=== PATIENT | male | born 1960 | race Caucasian/White ===

== ENCOUNTER 2025-01-29 22:40 | Observation (INO) ==
[2025-01-29 23:01] LABS: Hematocrit (blood only) 42.4 % (42.0-52.0); Hemoglobin 13.7 g/dl (14.0-18.0); Mean Corpuscular Hemoglobin 29.3 pg (25.0-34.0); Mean Corpuscular Volume 90.8 fL (80.0-100.0); Platelet Count 182 K/uL (130-400); RDW Standard Deviation 49.2 fL (36.4-46.3); Red Blood Count 4.67 M/uL (4.70-6.10); White Blood Count 10.69 K/ul (4.8-10.8)
--- NOTE | 2025-01-29 23:09 | Emergency Department Note ---
Impression & Plan Fall, CHI (closed head injury), Laceration of forehead, Alcohol intoxication, Syncope and collapse, Concussion ED Provider Note NAME: BERNARD BLIAR AGE: 64 SEX: Male INFORMANT: Patient, EMS, and friends ED PROVIDER(S): Ryder Ribeiro MD CHIEF COMPLAINT: Trauma PLAN: Disposition: Admitted Outpatient prescription management: none Referral: None MEDICAL DECISION MAKING: Patient presented and was made a trauma alert given the mechanism of injury by EMS report. He was evaluated immediately on arrival. Primary and secondary surveys performed. Patient was logrolled with inline cervical stabilization in the standard fashion. Patient was noted to have a laceration of the right forehead. Let gel was ordered. Chest x-ray done and was negative for acute process. I-STAT was unremarkable. Patient was sent for CT imaging of the head, facial bones and cervical spine. Secondary survey did not reveal any other injury. Benign chest, spine, abdominal, and extremity examination. Patient CBC and chemistry panel were unremarkable. Patient's blood alcohol level was slightly elevated at 0.145 mg/dL. Patient was reassessed multiple times. Mental status was stable. Patient's friends arrived to the emergency department and noted they were with him. They were standing listening to music and the patient seemingly just fell over from a standing position. No seizure activity described. They state that he seemed somewhat off just prior to the event. Everything seemed to be normal leading up to the event as well. Patient's mental status was gradually improving. Due to the alcohol on board his cervical collar was maintained. Patient has a small hairline crack of the right orbit. His laceration was repaired by my PA. Given the syncope as well as the head injury I discussed further evaluation and management in the hospital. Patient can have a consultation with oral maxillofacial surgery in the morning. Consultation was made with the [facility] service, Dr. Little. Discussed the patient's history, presentation and results from ER workup. Patient was evaluated in the ER and admitted for further management Care/management discussed with: regional construction manager, hospitalist Level of care consideration(s): After review of the information above and other included data, I feel the patient requires escalation of care to admission Triage Nursing notes: reviewed and agree them. Vital Signs: reviewed and remarkable for hypertension Additional History obtained from: EMS as well as the patient's friends as noted above. Chronic Medical/Social Conditions affecting care: Hypertension Prior/ Outside/ External records reviewed: None available Differential Diagnosis: Fracture, dislocation, contusion, intra-abdominal, pneumothorax, intrathoracic, intracranial, neurologic, compartment syndrome, rhabdomyolysis, as well as other pathologies. Diagnostics, independently interpreted by me: ECG: Twelve-lead ECG reveals normal sinus rhythm at 88 beats per minute. Inferior Q waves. No evidence of pericarditis, ischemia, ectopy, or dysrhythmia. Cardiac Monitoring: Cardiac monitoring ordered by me: The patient was placed on continuous cardiac monitoring and observed. It revealed a normal sinus rhythm at 76 beats per minute without ectopy or evidence of dysrhythmia. Medical decision rules: none Imaging studies: CT imaging of the head, facial bones and cervical spine as above. Chest x-ray. Findings: A chest x-ray was performed and revealed no pneumothorax, effusion, infiltrate, pulmonary edema, free air under the diaphragm, or wide mediastinum. Impression: No acute disease. HPI: 64 year old Male arrives for evaluation of trauma. Patient was reportedly drinking some alcohol downtown. He had an accidental fall and struck the right side of his face and the forehead/restorationism area. He had a laceration there with bleeding. Patient was unresponsive for about 2 to 3 minutes per bystanders on EMS report. Patient states he is visiting from [facility]. He was placed in a cervical collar. EMS contacted [facility]. They noted trauma and given their proximity he was directed to the emergency department for formal evaluation. No medication given prehospital. Patient notes a minor headache with a pain of a 1 out of 10. Pt denies LOC,visual changes, neck pain, chest pain, breathing difficulties, nausea, vomiting, abdominal pain, back pain, extremity pain, numbness, weakness, or other complaints. PAST MEDICAL HISTORY: See Below, high blood pressure PAST SURGICAL HISTORY: See Below, SOCIAL HISTORY: See Below, occasional alcohol HOME MEDICATIONS: See Below ALLERGIES: See Below VITALS: See Below PHYSICAL EXAMINATION: GENERAL: Awake, tired appearing, no acute distress HEAD: Normocephalic, moderate laceration noted to the lateral right forehead/anterior temporal area. No ornelas sign. No raccoon eyes. EYES: Normal conjunctiva. PERRL. EARS: External ears normal. NOSE: Atraumatic OROPHARYNX: Lips, tongue, and mucosa unremarkable. No erythema or exudate. NECK: Cervical collar in place. No tracheal deviation or JVD. No posterior midline tenderness. No step offs noted. RESPIRATORY: CTA bilaterally CARDIAC: Regular rate, normal rhythm. ABDOMEN: Inspection reveals no abnormalities. Soft, non distended. No tenderness to palpation. No hernias. BACK: No midline step offs or tenderness to palpation. Unremarkable. PELVIS: Stable to rock. SKIN: Normal. LYMPH: No adenopathy. MUSCULOSKELETAL: Upper and lower extremities are atraumatic. NEURO: GCS 14. Opens eyes to voice. Oriented to person and place however mildly altered sensorium. No focal sensory or motor deficits noted. PROCEDURES: none CRITICAL CARE: none OBSERVATION NOTE: none Past Med/Surg History Problem List (Updated 01/30/25 @ 02:01 by Ryder Ribeiro MD) Concussion (Acute) Syncope and collapse (Acute) Alcohol intoxication (Acute) Laceration of forehead (Acute) CHI (closed head injury) (Acute) Fall (Acute) Social History Smoking Status: Never smoker Preferred Language: Belarusian Feels Safe at Home: Yes Allergies Allergies Allergy/AdvReac Type Severity Reaction Status Date / Time No Known Allergies Allergy Verified 01/30/25 00:13 Home Meds Home Medications Medication Instructions Recorded Confirmed aspirin 81 mg tablet,delayed 81 mg PO DAILY 01/30/25 01/30/25 release atorvastatin 20 mg tablet 20 mg PO DAILY 01/30/25 01/30/25 Results & Data (ED) Vital Signs Vital Signs - 24 hr 01/29/25 22:44 01/29/25 22:46 01/29/25 22:47 Temperature 36.4 C L Pulse Rate 88 94 H Pulse Rate [Apical] Pulse Rhythm [Apical] Pulse Strength [Apical] Respiratory Rate 18 Respiratory Effort / Characteristics Respiratory Depth Respiratory Pattern Blood Pressure 170/95 H Blood Pressure [Right Arm] Blood Pressure Mean [Right Arm] Blood Pressure Position [Right Arm] Pulse Oximetry 95 Oxygen Delivery Method Room Air Oxygen Flow Rate 0 Sepsis Recent Fever Within 48 Hours No Sepsis New/Unexplained Change in Mental Status No Sepsis Action Taken by Nursing No Action Required 01/29/25 23:30 01/29/25 23:30 01/29/25 23:30 Temperature Pulse Rate Pulse Rate [Apical] 94 H 94 H Pulse Rhythm [Apical] Regular Regular Pulse Strength [Apical] Normal Normal Respiratory Rate 18 18 Respiratory Effort / Characteristics Non-Labored Spontaneous Non-Labored Spontaneous Respiratory Depth Normal Normal Respiratory Pattern Regular Regular Blood Pressure Blood Pressure [Right Arm] 143/69 H 143/69 H Blood Pressure Mean [Right Arm] 93 93 Blood Pressure Position [Right Arm] Semi-fowlers Semi-fowlers Pulse Oximetry 95 95 95 Oxygen Delivery Method Room Air Room Air Room Air Oxygen Flow Rate Sepsis Recent Fever Within 48 Hours Sepsis New/Unexplained Change in Mental Status Sepsis Action Taken by Nursing 01/30/25 00:00 01/30/25 01:00 Temperature Pulse Rate Pulse Rate [Apical] 90 76 Pulse Rhythm [Apical] Regular Regular Pulse Strength [Apical] Normal Normal Respiratory Rate 18 18 Respiratory Effort / Characteristics Non-Labored Spontaneous Non-Labored Spontaneous Respiratory Depth Normal Normal Respiratory Pattern Regular Regular Blood Pressure Blood Pressure [Right Arm] 128/71 115/73 Blood Pressure Mean [Right Arm] 90 87 Blood Pressure Position [Right Arm] Semi-fowlers Semi-fowlers Pulse Oximetry 94 95 Oxygen Delivery Method Room Air Room Air Oxygen Flow Rate Sepsis Recent Fever Within 48 Hours Sepsis New/Unexplained Change in Mental Status Sepsis Action Taken by Nursing Laboratory Data 01/29/25 22:49 01/29/25 22:49 Lab Results 01/29/25 01/29/25 Range/Units 22:49 22:55 WBC 10.69 (4.8-10.8) K/ul RBC 4.67 L (4.70-6.10) M/uL Hgb 13.7 L (14.0-18.0) g/dl POC Hgb 14.3 (14.0-18.0) g/dl Hct 42.4 (42.0-52.0) % POC Hct 42 (42-52) % MCV 90.8 (80.0-100.0) fL MCH 29.3 (25.0-34.0) pg MCHC 32.3 (32.0-36.0) g/dL RDW Std Deviation 49.2 H (36.4-46.3) fL RDW Coeff of Melodie 14.8 H (11.5-14.5) % Plt Count 182 (130-400) K/uL MPV 10.0 (9.4-12.4) fL Immature Gran % (Auto) 0.3 % Neut % (Auto) 35.3 % Lymph % (Auto) 50.0 % [place] % (Auto) 6.5 % Eos % (Auto) 7.2 % Baso % (Auto) 0.7 % Neut # (Auto) 3.77 (1.40-6.50) K/uL Lymph # (Auto) 5.35 H (1.20-3.40) K/uL [place] # (Auto) 0.70 H (0.11-0.59) K/uL Eos # (Auto) 0.77 H (0.00-0.50) K/uL Baso # (Auto) 0.07 (0.00-0.20) K/uL Immature Gran # (Auto) 0.03 (0.01-0.20) K/uL Polychromasia 1+ PT 10.2 (9.0-12.0) Seconds INR 0.9 (0.9-1.1) APTT 21 (21-31) Seconds PTT Ratio 0.8 POC Sodium 140 (135-144) mmol/L Sodium 139 (136-145) mmol/L POC Potassium 4.2 (3.3-5.0) mmol/L Potassium 4.2 (3.5-5.1) mmol/L POC Chloride 104 (101-112) mmol/L Chloride 103 (98-107) mmol/L Carbon Dioxide 29 (21-32) mmol/L POC Total CO2 27 (24-31) mmol/L Anion Gap 7 (3-11) POC Anion Gap 14.0 L (16-25) mmol/L POC BUN 18 (7-18) mg/dl BUN 16 (6-23) mg/dl Creatinine 1.22 (0.6-1.4) mg/dl POC Creatinine 1.4 H (0.6-1.3) mg/dl Est Cr Clr Drug Dosing 53.9 ml/min eGFR 66.62 BUN/Creatinine Ratio 13.1 (10-20) Glucose 116 H (70-99(Fasting)) mg/dl POC Glucose (other) 112 H (70-99) mg/dl Calcium 9.9 (8.6-10.3) mg/dl POC Ioniz Calcium Jennifer 1.21 (1.12-1.32) mmol/l Total Bilirubin 0.4 (0.2-1.0) mg/dl AST 27 (13-39) U/L ALT 19 (7-52) U/L Alkaline Phosphatase 122 H (34-104) U/L Troponin I High Sens 4.8 (0-20) pg/ml Total Protein 7.5 (6.0-8.3) gm/dl Albumin 4.4 (3.4-5.0) gm/dl Globulin 3.1 (2.5-4.0) gm/dl Albumin/Globulin Ratio 1.4 (0.9-2) Lipase 65 (11-82) U/L Ethyl Alcohol mg/dL 145.2 H (<10.0) mg/dl Administered Medications Discontinued Medications Acetaminophen (Ofirmev) 1,000 mg in 100 mls @ 400 mls/hr IV NOW STA Stop: 01/30/25 01:03 Last Infusion: 01/30/25 01:44 Dose: Infused Documented By: Admin: 01/30/25 01:15 Dose: 400 mls/hr Documented By: YAQUELIN Lidocaine (Lidocaine/Epineph/Tetracaine 1 Ea Syr) 1 each EXT NOW STA Stop: 01/29/25 22:48 Last Admin: 01/29/25 23:17 Dose: 1 each Documented By: YAQUELIN Imaging Data Radiologist's Impression: Cervical Spine CT 01/29/25 22:47 Exam(s): CT C SPINE EXAM: CT Cervical Spine Without Intravenous Contrast CLINICAL HISTORY: Reason for exam: Trauma. TECHNIQUE: Axial computed tomography images of the cervical spine without intravenous contrast. CTDI is 36.26 mGy and DLP is 1780.78 mGy-cm. Automated exposure control was utilized for the study. A dose lowering technique was utilized adhering to the principles of ALARA. COMPARISON: No relevant prior studies available. FINDINGS: Vertebrae: No acute fracture. No traumatic subluxation. Discs/spinal canal/neural foramina: Disc and uncovertebral joint degeneration at C4-C5, C5-C6, and C6-C7. Mild spinal canal stenosis and foraminal narrowing at these levels. Soft tissues: Unremarkable. IMPRESSION: No acute findings in the cervical spine. Electronically signed by: González Adams M.D. 01/29/25 23:38 PM Chest X-Ray 01/29/25 22:47 Exam(s): XR CXR 1 VIEW EXAM: XR Chest, 1 View CLINICAL HISTORY: Reason for exam: Trauma. TECHNIQUE: Frontal view of the chest. COMPARISON: No relevant prior studies available. FINDINGS: Lungs: No consolidation. Pleural space: No significant pleural effusion. No pneumothorax. Heart: No cardiomegaly or pulmonary vascular congestion. Bones/joints: No acute fracture. No dislocation. IMPRESSION: No evidence of acute cardiopulmonary disease. Electronically signed by: González Adams M.D. 01/30/25 00:[address] 01/29/25 22:47 Exam(s): CT FACIAL Without Contrast EXAM: CT Maxillofacial Without Intravenous Contrast CLINICAL HISTORY: Reason for exam: Trauma. TECHNIQUE: Axial computed tomography images of the face without intravenous contrast. CTDI is 36.26 mGy and DLP is 1780.78 mGy-cm. Automated exposure control was utilized for the study. A dose lowering technique was utilized adhering to the principles of ALARA. COMPARISON: No relevant prior studies available. FINDINGS: Bones/joints: Acute nondisplaced hairline fracture through the right orbital roof. No other fractures of the orbits or facial bones. Soft tissues: Right periorbital soft tissue swelling. Orbits: Ocular globes intact. No retrobulbar abnormalities. Small volume of hemorrhage and gas in the superior extraconal right orbital cavity. Sinuses: Mild mucosal thickening in the right frontal sinus, right ethmoids, and bilateral maxillary sinuses. IMPRESSION: 1. Right periorbital soft tissue swelling. 2. Acute nondisplaced hairline fracture through the right orbital roof. Associated small amount of hemorrhage and emphysema in the extraconal superior right orbital cavity. Electronically signed by: González Adams M.D. 01/29/25 23:[address] 01/29/25 22:47 Exam(s): CT HEAD Without Contrast EXAM: CT Head Without Intravenous Contrast CLINICAL HISTORY: Reason for exam: Trauma. TECHNIQUE: Axial computed tomography images of the head/brain without intravenous contrast. CTDI is 36.26 mGy and DLP is 1780.78 mGy-cm. Automated exposure control was utilized for the study. A dose lowering technique was utilized adhering to the principles of ALARA. COMPARISON: No relevant prior studies available. FINDINGS: Brain: No acute intracranial hemorrhage, mass effect, or parenchymal edema. No evident loss of dewitt-white matter differentiation. No significant white matter disease. Ventricles: No hydrocephalus. Bones/joints: Acute hairline fracture through the right orbital roof. Subjacent foci of gas and hemorrhage in the superior extraconal right orbital cavity. Soft tissues: Right frontal scalp laceration/hematoma and right supraorbital soft tissue swelling. Vasculature: Intracranial atherosclerosis. Sinuses: Unremarkable as visualized. Mastoid air cells: No significant mastoid effusion. IMPRESSION: 1. Right frontal scalp laceration/hematoma and right supraorbital soft tissue swelling. 2. Acute hairline fracture through the right orbital roof. Subjacent foci of gas and hemorrhage in the superior extraconal right orbital cavity. 3. No acute intracranial findings. Electronically signed by: González Adams M.D. 01/29/25 23:45 PM Discharge Plan Visit Data Chief Complaint: Trauma Stated Complaint: fall ED Provider: Ryder Ribeiro Discharge Problem: Fall, CHI (closed head injury), Laceration of forehead, Alcohol intoxication, Syncope and collapse, Concussion Condition: Good Forms Stand Alone Forms: [facility] [employer] Prescriptions Prescriptions: No Action atorvastatin 20 mg tablet 20 mg PO DAILY aspirin 81 mg Tablet,Delayed Release (Dr/Ec) 81 mg PO DAILY Referrals Referrals: PCP,NO [Primary Care Provider] -
[2025-01-29] MEDS: LIDOCAINE/EPINEPH/TETRACAINE 1 EA SYR EXT STA (23:17)
[2025-01-29 23:19] LABS: Alanine Aminotransferase 19.0 U/L (7-52); Albumin Globulin Ratio 1.4 (0.9-2); Alkaline Phosphatase 122.0 U/L (34-104); Anion Gap 7.0 (3-11); Bilirubin,Total 0.4 mg/dl (0.2-1.0); Blood Urea Nitrogen 16.0 mg/dl (6-23); Calcium 9.9 mg/dl (8.6-10.3); Carbon Dioxide 29.0 mmol/L (21-32); Chloride 103.0 mmol/L (98-107); Creatinine Clr Calc Pharmacy 53.9 ml/min; Globulin 3.1 gm/dl (2.5-4.0); Glucose 116.0 mg/dl (70-99(Fasting)); Lipase 65.0 U/L (11-82); Potassium 4.2 mmol/L (3.5-5.1); Sodium 139.0 mmol/L (136-145); Total Protein 7.5 gm/dl (6.0-8.3)
[2025-01-29 23:40] LABS: INR 0.9 (0.9-1.1); Partial Thromboplastin Time 21 Seconds (21-31); Prothrombin Time 10.2 Seconds (9.0-12.0)
--- NOTE | 2025-01-29 23:40 | CT Scan Report ---
Exam(s): CT C SPINE EXAM: CT Cervical Spine Without Intravenous Contrast CLINICAL HISTORY: Reason for exam: Trauma. TECHNIQUE: Axial computed tomography images of the cervical spine without intravenous contrast. CTDI is 36.26 mGy and DLP is 1780.78 mGy-cm. Automated exposure control was utilized for the study. A dose lowering technique was utilized adhering to the principles of ALARA. COMPARISON: No relevant prior studies available. FINDINGS: Vertebrae: No acute fracture. No traumatic subluxation. Discs/spinal canal/neural foramina: Disc and uncovertebral joint degeneration at C4-C5, C5-C6, and C6-C7. Mild spinal canal stenosis and foraminal narrowing at these levels. Soft tissues: Unremarkable. IMPRESSION: No acute findings in the cervical spine. Electronically signed by: González Adams M.D. 01/29/25 23:38 PM
--- NOTE | 2025-01-29 23:46 | CT Scan Report ---
Exam(s): CT HEAD Without Contrast EXAM: CT Head Without Intravenous Contrast CLINICAL HISTORY: Reason for exam: Trauma. TECHNIQUE: Axial computed tomography images of the head/brain without intravenous contrast. CTDI is 36.26 mGy and DLP is 1780.78 mGy-cm. Automated exposure control was utilized for the study. A dose lowering technique was utilized adhering to the principles of ALARA. COMPARISON: No relevant prior studies available. FINDINGS: Brain: No acute intracranial hemorrhage, mass effect, or parenchymal edema. No evident loss of dewitt-white matter differentiation. No significant white matter disease. Ventricles: No hydrocephalus. Bones/joints: Acute hairline fracture through the right orbital roof. Subjacent foci of gas and hemorrhage in the superior extraconal right orbital cavity. Soft tissues: Right frontal scalp laceration/hematoma and right supraorbital soft tissue swelling. Vasculature: Intracranial atherosclerosis. Sinuses: Unremarkable as visualized. Mastoid air cells: No significant mastoid effusion. IMPRESSION: 1. Right frontal scalp laceration/hematoma and right supraorbital soft tissue swelling. 2. Acute hairline fracture through the right orbital roof. Subjacent foci of gas and hemorrhage in the superior extraconal right orbital cavity. 3. No acute intracranial findings. Electronically signed by: González Adams M.D. 01/29/25 23:45 PM
[2025-01-29 23:52] LABS: Immature Granulocytes # (auto) 0.03 K/uL (0.01-0.20); Immature Granulocytes % (auto) 0.3 %; Polychromasia 1+
--- NOTE | 2025-01-30 | CT Scan Report ---
Exam(s): CT FACIAL Without Contrast EXAM: CT Maxillofacial Without Intravenous Contrast CLINICAL HISTORY: Reason for exam: Trauma. TECHNIQUE: Axial computed tomography images of the face without intravenous contrast. CTDI is 36.26 mGy and DLP is 1780.78 mGy-cm. Automated exposure control was utilized for the study. A dose lowering technique was utilized adhering to the principles of ALARA. COMPARISON: No relevant prior studies available. FINDINGS: Bones/joints: Acute nondisplaced hairline fracture through the right orbital roof. No other fractures of the orbits or facial bones. Soft tissues: Right periorbital soft tissue swelling. Orbits: Ocular globes intact. No retrobulbar abnormalities. Small volume of hemorrhage and gas in the superior extraconal right orbital cavity. Sinuses: Mild mucosal thickening in the right frontal sinus, right ethmoids, and bilateral maxillary sinuses. IMPRESSION: 1. Right periorbital soft tissue swelling. 2. Acute nondisplaced hairline fracture through the right orbital roof. Associated small amount of hemorrhage and emphysema in the extraconal superior right orbital cavity. Electronically signed by: González Adams M.D. 01/29/25 23:59 PM
--- NOTE | 2025-01-30 00:01 | Emergency Department Note ---
ED Visit Note I was asked by Dr. Ribeiro to repair this patient's forehead laceration. Please refer to his dictation for full details. In short, the patient had a syncopal event causing a laceration to the right side of the forehead. The patient has a 3 cm laceration to the right side of the forehead. The edges gape apart with traction. No deep structures injured within the base of the wound. No foreign bodies. No active bleeding. Risks and benefits of the procedure were discussed. Verbal consent was obtained to perform the procedure and the procedure was performed by myself. Let gel had been applied for anesthesia. Using sterile technique the wound was cleaned with Betadine. The area was sterilely draped. Once the patient was anesthetized, the wound was copiously irrigated under pressure with sterile saline. The wound was explored and was as described above. The laceration was repaired using 8 simple interrupted 6-0 nylon sutures with the wound edges being well approximated. The patient tolerated the procedure well. Hemostasis was achieved. The area was cleaned with sterile saline and dressed with bacitracin ointment. .
--- NOTE | 2025-01-30 00:05 | XRay Report ---
Exam(s): XR CXR 1 VIEW EXAM: XR Chest, 1 View CLINICAL HISTORY: Reason for exam: Trauma. TECHNIQUE: Frontal view of the chest. COMPARISON: No relevant prior studies available. FINDINGS: Lungs: No consolidation. Pleural space: No significant pleural effusion. No pneumothorax. Heart: No cardiomegaly or pulmonary vascular congestion. Bones/joints: No acute fracture. No dislocation. IMPRESSION: No evidence of acute cardiopulmonary disease. Electronically signed by: González Adams M.D. 01/30/25 00:04 AM
[2025-01-30] MEDS: ACETAMINOPHEN 1,000 MG/100 ML VIAL IV STA (01:15)
[2025-01-30 02:08] LABS: Appearance Urine Clear (Clear); Glucose Urine UA Negative (Negative)
[2025-01-30] MEDS: THIAMINE HCL 100 MG in SYRINGE 9 ML IV STA (05:35)
--- NOTE | 2025-01-30 06:52 | History & Physical Report ---
Date of Service January 30, 2025 Assessment & Plan (1) Syncope and collapse: Plan: 64-year-old male with past medical history significant for hyperlipidemia who is unassigned patient visiting [place] comes because of syncope and fall. Patient is visiting from [facility]. Seems visiting his friends. He played golf and was drinking alcohol. The patient suddenly fell down. Patient does not remember the events. As per the ER his friends told that they were standing listening to the music as patient suddenly seemed somewhat off and just fell over from the standing position. No seizure activity noted. Looks like patient passed out for 2 to 3 minutes. When he fell he hit the right side of the head. He had a laceration and bleeding on the right forehead. Laceration was repaired in the ER. Patient is on neck collar. His alcohol as 145. Imaging studies showed hairline fracture of the right orbit. Patient has a bruise over the right eye. Currently denies any headache or neck pain. Denies any blurred vision ,says vision is okay. No runny nose or sore throat. No cough. No earaches. Afebrile. Denies any chest pain or shortness of breath. Denies nausea. Denies abdominal pain. States normal bowel and bladder movements. Hemodynamics are okay currently. Syncope and collapse Alcohol level [address] head shows right frontal scalp laceration and right supraorbital soft tissue swelling. Acute hairline fracture of the right orbital roof with subsequent foci of gas and hemorrhage in the superior extraconal right orbital cavity. No acute intracranial findings Will follow serial enzymes and repeat EKG in. Monitor on telemetry Will follow echo IV fluids Cardiology consult Fall Right orbital hairline fracture Consult maxillofacial surgery Empiric Unasyn continue neck collar until alcohol level down and evaluate denies any headache or neck pain now npo for now. Iv fluids Alcoholism Alcohol level 145 Patient states he only drinks couple of times a week and not heavy Says he will not go through withdrawal Will place on thiamine, folic acid and multivitamins IV Ativan as needed Close monitor Hyperlipidemia Statin DVT prophylaxis SCDs Disposition Telemetry Full code. History of Present Illness Chief Complaint: Syncope and status post fall Primary Care Provider: NO PCP 64-year-old male with past medical history significant for hyperlipidemia who is unassigned patient visiting [place] comes because of syncope and fall. Patient is visiting from [facility]. Seems visiting his friends. He played golf and was drinking alcohol. The patient suddenly fell down. Patient does not remember the events. As per the ER his friends told that they were standing listening to the music as patient suddenly seemed somewhat off and just fell over from the standing position. No seizure activity noted. Looks like patient passed out for 2 to 3 minutes. When he fell he hit the right side of the head. He had a laceration and bleeding on the right forehead. Laceration was repaired in the ER. Patient is on neck collar. His alcohol as 145. Imaging studies showed hairline fracture of the right orbit. Patient has a bruise over the right eye. Currently denies any headache or neck pain. Denies any blurred vision ,says vision is okay. No runny nose or sore throat. No cough. No earaches. Afebrile. Denies any chest pain or shortness of breath. Denies nausea. Denies abdominal pain. States normal bowel and bladder movements. Hemodynamics are okay currently. Past medical history. As mentioned above. Past surgical history. Left shoulder cuff repair. Left tibia-fibula repair. Social history. Denies smoking. Says drinks beer 2 times a week and not much. Denies drug use. Family history. Father had bladder cancer. Mother had breast cancer. Allergies Allergy/AdvReac Type Severity Reaction Status Date / Time No Known Allergies Allergy Verified 01/30/25 00:13 Home Medications Medication Instructions Recorded Confirmed Type aspirin 81 mg tablet,delayed 81 mg PO DAILY 01/30/25 01/30/25 History release atorvastatin 20 mg tablet 20 mg PO DAILY 01/30/25 01/30/25 History Past Med/Surg History Problem List (Updated 01/30/25 @ 02:01 by Ryder Ribeiro MD) Concussion (Acute) Syncope and collapse (Acute) Alcohol intoxication (Acute) Laceration of forehead (Acute) CHI (closed head injury) (Acute) Fall (Acute) Social History Smoking Status: Never smoker Preferred Language: Hungarian Feels Safe at Home: Yes Review of Systems Review of Systems: All systems reviewed & are unremarkable except as noted in HPI & below Physical Exam Physical Exam: General- not in acute distress Head- laceration on left forehead, bruise surrounding right eye Eyes- PERRL. ENT- oropharynx clear Neck- On Neck collar Lungs- clear to auscultation no wheezing or crackles Heart- regular rhythm; no murmur, no gallop. Abdomen- normal bowel sounds, soft, nontender, no distension Extremities- no pretibial edema, no erythema seen Neuro- alert, oriented x 3; no facial palsy; no dysarthria; moves extremities .power 5/5 in all extremities Results & Data Results & Data Vital Signs (Past 12 Hours) Vital Signs Temp Pulse Pulse Resp BP BP Pulse Ox 01/30/25 04:00 79 18 105/68 96 01/30/25 03:00 74 17 110/65 97 01/30/25 02:40 83 01/30/25 02:00 74 18 107/67 94 01/30/25 01:00 76 18 115/73 95 01/30/25 00:00 90 18 128/71 94 01/29/25 23:30 94 H 18 143/69 H 95 01/29/25 23:30 94 H 18 143/69 H 95 01/29/25 23:30 95 01/29/25 22:46 94 H 01/29/25 22:44 36.4 C L 88 18 170/95 H 95 O2 Del Method O2 Flow Rate 01/30/25 04:00 Room Air 01/30/25 03:00 Room Air 01/30/25 02:40 01/30/25 02:00 Room Air 01/30/25 01:00 Room Air 01/30/25 00:00 Room Air 01/29/25 23:30 Room Air 01/29/25 23:30 Room Air 01/29/25 23:30 Room Air 01/29/25 22:46 01/29/25 22:44 Room Air 0 Diagnostic Findings Laboratory Results WBC 10.69 K/ul (4.8-10.8) 01/29/25 22:49 RBC 4.67 M/uL (4.70-6.10) L 01/29/25 22:49 Hgb 13.7 g/dl (14.0-18.0) L 01/29/25 22:49 POC Hgb 14.3 g/dl (14.0-18.0) 01/29/25 22:55 Hct 42.4 % (42.0-52.0) 01/29/25 22:49 POC Hct 42 % (42-52) 01/29/25 22:55 MCV 90.8 fL (80.0-100.0) 01/29/25 22:49 MCH 29.3 pg (25.0-34.0) 01/29/25 22:49 MCHC 32.3 g/dL (32.0-36.0) 01/29/25 22:49 RDW Std Deviation 49.2 fL (36.4-46.3) H 01/29/25 22:49 RDW Coeff of Melodie 14.8 % (11.5-14.5) H 01/29/25 22:49 Plt Count 182 K/uL (130-400) 01/29/25 22:49 MPV 10.0 fL (9.4-12.4) 01/29/25 22:49 Immature Gran % (Auto) 0.3 % 01/29/25 22:49 Neut % (Auto) 35.3 % 01/29/25 22:49 Lymph % (Auto) 50.0 % 01/29/25 22:49 Ogle % (Auto) 6.5 % 01/29/25 22:49 Eos % (Auto) 7.2 % 01/29/25 22:49 Baso % (Auto) 0.7 % 01/29/25 22:49 Neut # (Auto) 3.77 K/uL (1.40-6.50) 01/29/25 22:49 Lymph # (Auto) 5.35 K/uL (1.20-3.40) H 01/29/25 22:49 [place]gle # (Auto) 0.70 K/uL (0.11-0.59) H 01/29/25 22:49 Eos # (Auto) 0.77 K/uL (0.00-0.50) H 01/29/25 22:49 Baso # (Auto) 0.07 K/uL (0.00-0.20) 01/29/25:49 Immature Gran # (Auto) 0.03 K/uL (0.01-0.20) 01/29/25 22:49 Polychromasia 1+ 01/29/25 22:49 PT 10.2 Seconds (9.0-12.0) 01/29/25 22:49 INR 0.9 (0.9-1.1) 01/29/25 22:49 APTT 21 Seconds (21-31) 01/29/25 22:49 PTT Ratio 0.8 01/29/25 22:49 POC Sodium 140 mmol/L (135-144) 01/29/25 22:55 Sodium 139 mmol/L (136-145) 01/29/25 22:49 POC Potassium 4.2 mmol/L (3.3-5.0) 01/29/25 22:55 Potassium 4.2 mmol/L (3.5-5.1) 01/29/25 22:49 POC Chloride 104 mmol/L (101-112) 01/29/25 22:55 Chloride 103 mmol/L (98-107) 01/29/25 22:49 Carbon Dioxide 29 mmol/L (21-32) 01/29/25 22:49 POC Total CO2 27 mmol/L (24-31) 01/29/25 22:55 Anion Gap 7 (3-11) 01/29/25 22:49 POC Anion Gap 14.0 mmol/L (16-25) L 01/29/25 22:55 POC BUN 18 mg/dl (7-18) 01/29/25 22:55 BUN 16 mg/dl (6-23) 01/29/25 22:49 Creatinine 1.22 mg/dl (0.6-1.4) 01/29/25 22:49 POC Creatinine 1.4 mg/dl (0.6-1.3) H 01/29/25 22:55 Est Cr Clr Drug Dosing 53.9 ml/min 01/29/25 22:49 eGFR 66.62 01/29/25 22:49 BUN/Creatinine Ratio 13.1 (10-20) 01/29/25 22:49 Glucose 116 mg/dl (70-99(Fasting)) H 01/29/25 22:49 POC Glucose (other) 112 mg/dl (70-99) H 01/29/25 22:55 Calcium 9.9 mg/dl (8.6-10.3) 01/29/25 22:49 POC Ioniz Calcium Jennifer 1.21 mmol/l (1.12-1.32) 01/29/25 22:55 Total Bilirubin 0.4 mg/dl (0.2-1.0) 01/29/25 22:49 AST 27 U/L (13-39) 01/29/25 22:49 ALT 19 U/L (7-52) 01/29/25 22:49 Alkaline Phosphatase 122 U/L (34-104) H 01/29/25 22:49 Troponin I High Sens 4.8 pg/ml (0-20) 01/29/25 22:49 Total Protein 7.5 gm/dl (6.0-8.3) 01/29/25 22:49 Albumin 4.4 gm/dl (3.4-5.0) 01/29/25 22:49 Globulin 3.1 gm/dl (2.5-4.0) 01/29/25 22:49 Albumin/Globulin Ratio 1.4 (0.9-2) 01/29/25 22:49 Lipase 65 U/L (11-82) 01/29/25 22:49 Urine Color Yellow 01/30/25 01:44 Urine Appearance Clear (Clear) 01/30/25 01:44 Urine pH 5.0 (4.5-7.5) 01/30/25 01:44 Ur Specific [place] 1.015 (1.000-1.030) 01/30/25 01:44 Urine Protein Negative (Negative) 01/30/25 01:44 Urine Glucose (UA) Negative (Negative) 01/30/25 01:44 Urine Ketones Trace (Negative) H 01/30/25 01:44 Urine Blood Negative (Negative) 01/30/25 01:44 Urine Nitrite Negative (Negative) 01/30/25 01:44 Urine Bilirubin Negative (Negative) 01/30/25 01:44 Urine Urobilinogen Negative (Negative) 01/30/25 01:44 Ur Leukocyte Esterase Negative (Negative) 01/30/25 01:44 Urine Comment 01/30/25 01:44 Ethyl Alcohol mg/dL 145.2 mg/dl (<10.0) H 01/29/25 22:[address] 01/29/25 22:47 Exam(s): CT C SPINE EXAM: CT Cervical Spine Without Intravenous Contrast CLINICAL HISTORY: Reason for exam: Trauma. TECHNIQUE: Axial computed tomography images of the cervical spine without intravenous contrast. CTDI is 36.26 mGy and DLP is 1780.78 mGy-cm. Automated exposure control was utilized for the study. A dose lowering technique was utilized adhering to the principles of ALARA. COMPARISON: No relevant prior studies available. FINDINGS: Vertebrae: No acute fracture. No traumatic subluxation. Discs/spinal canal/neural foramina: Disc and uncovertebral joint degeneration at C4-C5, C5-C6, and C6-C7. Mild spinal canal stenosis and foraminal narrowing at these levels. Soft tissues: Unremarkable. IMPRESSION: No acute findings in the cervical spine. Electronically signed by: González Adams M.D. 01/29/25 23:38 PM Chest X-Ray 01/29/25 22:47 Exam(s): XR CXR 1 VIEW EXAM: XR Chest, 1 View CLINICAL HISTORY: Reason for exam: Trauma. TECHNIQUE: Frontal view of the chest. COMPARISON: No relevant prior studies available. FINDINGS: Lungs: No consolidation. Pleural space: No significant pleural effusion. No pneumothorax. Heart: No cardiomegaly or pulmonary vascular congestion. Bones/joints: No acute fracture. No dislocation. IMPRESSION: No evidence of acute cardiopulmonary disease. Electronically signed by: González Adams M.D. 01/30/25 00:[address] 01/29/25 22:47 Exam(s): CT FACIAL Without Contrast EXAM: CT Maxillofacial Without Intravenous Contrast CLINICAL HISTORY: Reason for exam: Trauma. TECHNIQUE: Axial computed tomography images of the face without intravenous contrast. CTDI is 36.26 mGy and DLP is 1780.78 mGy-cm. Automated exposure control was utilized for the study. A dose lowering technique was utilized adhering to the principles of ALARA. COMPARISON: No relevant prior studies available. FINDINGS: Bones/joints: Acute nondisplaced hairline fracture through the right orbital roof. No other fractures of the orbits or facial bones. Soft tissues: Right periorbital soft tissue swelling. Orbits: Ocular globes intact. No retrobulbar abnormalities. Small volume of hemorrhage and gas in the superior extraconal right orbital cavity. Sinuses: Mild mucosal thickening in the right frontal sinus, right ethmoids, and bilateral maxillary sinuses. IMPRESSION: 1. Right periorbital soft tissue swelling. 2. Acute nondisplaced hairline fracture through the right orbital roof. Associated small amount of hemorrhage and emphysema in the extraconal superior right orbital cavity. Electronically signed by: González Adams M.D. 01/29/25 23:[address] 01/29/25 22:47 Exam(s): CT HEAD Without Contrast EXAM: CT Head Without Intravenous Contrast CLINICAL HISTORY: Reason for exam: Trauma. TECHNIQUE: Axial computed tomography images of the head/brain without intravenous contrast. CTDI is 36.26 mGy and DLP is 1780.78 mGy-cm. Automated exposure control was utilized for the study. A dose lowering technique was utilized adhering to the principles of ALARA. COMPARISON: No relevant prior studies available. FINDINGS: Brain: No acute intracranial hemorrhage, mass effect, or parenchymal edema. No evident loss of dewitt-white matter differentiation. No significant white matter disease. Ventricles: No hydrocephalus. Bones/joints: Acute hairline fracture through the right orbital roof. Subjacent foci of gas and hemorrhage in the superior extraconal right orbital cavity. Soft tissues: Right frontal scalp laceration/hematoma and right supraorbital soft tissue swelling. Vasculature: Intracranial atherosclerosis. Sinuses: Unremarkable as visualized. Mastoid air cells: No significant mastoid effusion. IMPRESSION: 1. Right frontal scalp laceration/hematoma and right supraorbital soft tissue swelling. 2. Acute hairline fracture through the right orbital roof. Subjacent foci of gas and hemorrhage in the superior extraconal right orbital cavity. 3. No acute intracranial findings. Electronically signed by: González Adams M.D. 01/29/25 23:45 PM ECG Additional Comments: ECG. Normal sinus rhythm with a rate of 88. T wave inversions in inferior leads seen. QTc 421. Code Status & VTE Plan VTE Prophylaxis Plan VTE Prophylaxis will be ordered: Yes
--- NOTE | 2025-01-30 07:28 | Electrocardiogram Report ---
Test Reason : Blood Pressure : */* mmHG Vent. Rate : 88 BPM Atrial Rate : 88 BPM P-R Int : 146 ms QRS Dur : 82 ms QT Int : 348 ms P-R-T Axes : -17 -2 -13 degrees QTcB Int : 421 ms Normal sinus rhythm possible Inferior infarct , age undetermined Abnormal ECG No previous ECGs available Confirmed by Jonas Santacruz ([id number]) on 01/30/2025 7:27:37 AM Referred By: REFERRED SELF Confirmed By: Jonas Santacruz
[2025-01-30] MEDS ORDERED: ACETAMINOPHEN 325 MG TAB PO PRN (08:39)
[2025-01-30 09:03] LABS: Hematocrit (blood only) 39.1 % (42.0-52.0); Hemoglobin 13.0 g/dl (14.0-18.0); Immature Granulocytes # (auto) 0.02 K/uL (0.01-0.20); Immature Granulocytes % (auto) 0.2 %; Mean Corpuscular Hemoglobin 29.5 pg (25.0-34.0); Mean Corpuscular Volume 88.9 fL (80.0-100.0); Platelet Count 145 K/uL (130-400); RDW Standard Deviation 48.7 fL (36.4-46.3); Red Blood Count 4.40 M/uL (4.70-6.10); White Blood Count 8.51 K/ul (4.8-10.8)
[2025-01-30 09:21] LABS: Anion Gap 6.0 (3-11); Blood Urea Nitrogen 17.0 mg/dl (6-23); Calcium 9.2 mg/dl (8.6-10.3); Carbon Dioxide 27.0 mmol/L (21-32); Chloride 104.0 mmol/L (98-107); Creatinine Clr Calc Pharmacy 69.2 ml/min; Glucose 105.0 mg/dl (70-99(Fasting)); Iron 64.0 mcg/dl (35-175); Magnesium 2.0 mg/dl (1.7-2.4); Potassium 4.5 mmol/L (3.5-5.1); Sodium 137.0 mmol/L (136-145); Total Iron Binding Cap Calc 444.0 mcg/dl (250-450); Transferrin 317.0 mg/dl (200-360); Transferrin (FE) Percent Satur 14.0 % (20-50)
[2025-01-30 09:47] LABS: Folate (Folic Acid),Ser orPlas 14.85 ng/ml (>5.38)
[2025-01-30 09:49] LABS: Vitamin B12 374.0 pg/ml (180-914)
[2025-01-30] MEDS: ATORVASTATIN 20 MG TAB PO SCH (09:51)
[2025-01-30] MEDS: AMPICILLIN/SULBACTAM SOD 3,000 MG/100 ML BAG IV SCH (09:51)
[2025-01-30] MEDS: CEROVITE ADV FORMULA TAB PO SCH (09:51)
[2025-01-30] MEDS: SODIUM CHLORIDE 0.9% 1,000 ML IV SCH (09:52)
[2025-01-30] MEDS: FOLIC ACID 1 MG TAB PO SCH (10:32)
--- NOTE | 2025-01-30 11:25 | Cardiology Consultation ---
Date of Consultation January 30, 2025 Assessment & Plan (1) Syncope and collapse: (2) Alcohol intoxication: (3) CHI (closed head injury): Patient with syncopal episode in the setting of alcohol intoxication. Cardiac workup is reassuring. Although repeat EKG tracing is suggestive of possible left atrial lodgment, chamber size is normal on the echocardiogram. Mild aortic valve regurgitation is present, otherwise no significant findings. High-sensitivity troponin levels performed x 2 were normal. Telemetry reviewed revealing sinus rhythm in the 60s. No additional cardiac workup is felt to be indicated. Patient can follow-up with his PCP in [place]. I think would be reasonable to hold aspirin for 5 days given scalp laceration and right orbital roof fracture. Continue P[employer]TER atorvastatin. Call with questions or concerns. Candie Saha DO I spent a total of 60 minutes on the date of service in preparation, delivery, and documentation of the care provided to this patient, excluding any time spent in the performance of separately billed services. History of Present Illness Attending Physician: Keven Smiley MD History of Present Illness Mr Smith is a 64 year old male seen in cardiology consultation per the request of Dr Little for the evaluation of syncope. Patient is a graduate of [employer]. He is retired having worked in [employer] and lives in [place], [place]. He was in town for a fraternity reunion and notes being on a golf outing yesterday. He describes having had several beers while golfing. He then went out to dinner and had several more beers and a cocktail. At 11 PM while standing and socializing he became unsteady and had a witnessed loss of postural tone event falling to the ground and impacting his right forehead and periorbital area. He suffered a laceration to his right forehead which was sutured by the ED staff overnight. CT of the face revealed right periorbital soft tissue swelling And a nondisplaced hairline fracture through the right orbital roof with a small amount of hemorrhage and emphysema in the extra coronal superior right orbital cavity. No acute intracranial abnormalities were noted. Patient denies any past syncopal episodes. He states that at baseline he he exercises jogging several times per week and using weights. He denies any symptoms of angina. He has 1 of 5 brothers and one of his brothers had CABG x 4 a little over a year ago. The patient therefore had seen a repairer veneer sheet in [place] and he describes that a year ago he underwent a CT calcium score and what sounds like an exercise nuclear stress test. He is unaware of the number of his calcium score, but states that stress test was normal. He has remained on treatment with aspirin and atorvastatin in the meantime. He has not had any previous syncopal episodes. Allergies Allergy/AdvReac Type Severity Reaction Status Date / Time No Known Allergies Allergy Verified 01/30/25 00:13 Home Medications Medication Instructions Recorded Confirmed Type aspirin 81 mg tablet,delayed 81 mg PO DAILY 01/30/25 01/30/25 History release atorvastatin 20 mg tablet 20 mg PO DAILY 01/30/25 01/30/25 History Patient History Social History Smoking Status: Never smoker Preferred Language: Canadian Feels Safe at Home: Yes Review of Systems Review of Systems: All systems reviewed & are unremarkable except as noted in HPI & below Physical Exam Constitutional: well developed; not ill appearing Eyes: Noted ecchymosis of the right forehead and right periorbital area and right eyelid consistent with his trauma. Neck: trachea midline Respiratory: normal respiratory effort, lungs clear to auscultation Cardiovascular: RRR, no murmur, no edema Vessels: no JVD Gastrointestinal (Abdomen): normal bowel sounds, soft, nontender, no hepatosplenomegaly Neurologic: PERRL, EOMI, accommodation nl, no face palsy, no dysarthria Results & Data Vital Signs (Past 12 Hours) Vital Signs Pulse Pulse Resp BP Pulse Ox O2 Del Method 01/30/25 09:00 62 16 137/78 96 Room Air 01/30/25 08:43 Room Air 01/30/25 08:07 76 18 158/84 H 96 Room Air 01/30/25 08:06 80 01/30/25 08:00 74 18 158/84 H 97 Room Air 01/30/25 07:00 70 18 136/77 96 Room Air 01/30/25 06:09 76 01/30/25 06:00 67 18 128/77 97 Room Air 01/30/25 05:00 67 18 113/71 97 Room Air 01/30/25 04:00 79 18 105/68 96 Room Air 01/30/25 03:00 74 17 110/65 97 Room Air 01/30/25 02:40 83 01/30/25 02:00 74 18 107/67 94 Room Air 01/30/25 01:00 76 18 115/73 95 Room Air 01/30/25 00:00 90 18 128/71 94 Room Air 01/29/25 23:30 94 H 18 143/69 H 95 Room Air 01/29/25 23:30 94 H 18 143/69 H 95 Room Air 01/29/25 23:30 95 Room Air Laboratory Results Cardiac Enzymes 01/29/25 01/30/25 Range/Units 22:49 08:50 AST 27 (13-39) U/L Troponin I High Sens 4.8 5.7 (0-20) pg/ml Coagulation 01/29/25 Range/Units 22:49 PT 10.2 (9.0-12.0) Seconds APTT 21 (21-31) Seconds CBC 01/29/25 01/30/25 Range/Units 22:49 08:50 WBC 10.69 8.51 (4.8-10.8) K/ul RBC 4.67 L 4.40 L (4.70-6.10) M/uL Hgb 13.7 L 13.0 L (14.0-18.0) g/dl Hct 42.4 39.1 L (42.0-52.0) % Plt Count 182 145 (130-400) K/uL Neut # (Auto) 3.77 5.99 (1.40-6.50) K/uL Lymph # (Auto) 5.35 H 1.71 (1.20-3.40) K/uL [place] # (Auto) 0.70 H 0.59 (0.11-0.59) K/uL Eos # (Auto) 0.77 H 0.16 (0.00-0.50) K/uL Baso # (Auto) 0.07 0.04 (0.00-0.20) K/uL Comprehensive Metabolic Panel 01/29/25 01/30/25 Range/Units 22:49 08:50 Sodium 139 137 (136-145) mmol/L Potassium 4.2 4.5 (3.5-5.1) mmol/L Chloride 103 104 (98-107) mmol/L Carbon Dioxide 29 27 (21-32) mmol/L BUN 16 17 (6-23) mg/dl Creatinine 1.22 0.95 (0.6-1.4) mg/dl Glucose 116 H 105 H (70-99(Fasting)) mg/dl Calcium 9.9 9.2 (8.6-10.3) mg/dl AST 27 (13-39) U/L ALT 19 (7-52) U/L Alkaline Phosphatase 122 H (34-104) U/L Total Protein 7.5 (6.0-8.3) gm/dl Albumin 4.4 (3.4-5.0) gm/dl Intake and Output 01/29/25 01/30/25 01/30/25 22:59 06:59 14:59 Intake Total 100 / 100 100 / 100 Balance 100 / 100 100 / 100 Intake: IV 100 / 100 100 / 100 Acetaminophen 1,000 mg In 100 100 / 100 ml @ 400 mls/hr IV NOW STA Rx#: [id number] Ampicillin/Sulbactam Sod 3,000 100 / 100 mg In 100 ml @ 200 mls/hr IV Q6H [facility] Rx#:[id number] Other: Weight 71.2 kg Ethyl alcohol mg/dl: 145.2 (normal < 10.0 mg/dl) Diagnostic Findings Initial EKG performed 01/29/2025 at 2309 interpreted independently: Sinus rhythm at 88 bpm, baseline artifact, possible age-indeterminate inferior infarct, no previous tracings available. Repeat tracing performed today 01/30/2025 at 10:25 AM and interpret independently: Sinus rhythm at 65 bpm. Possible left atrial lodgment, otherwise normal EKG. Compared to the previous tracing, the previously noted baseline artifact has resolved. The age-indeterminate infarct pattern previously observed in leads III and aVF have resolved. Summary of transthoracic echocardiogram performed today 02/26/2025 and interpreted independently: The study was technically adequate. There is borderline concentric left ventricular hypertrophy. No regional wall motion abnormalities noted. Left ventricular systolic function is normal. Left Ventricular Ejection Fraction = 60-65%. The right ventricle is normal in size and function. Grade I diastolic dysfunction, (abnormal relaxation pattern). Mild aortic valve regurgitation is present, otherwise no significant provide heart disease Patient with syncopal episode in the setting of alcohol intoxication. PG Care Time/CCT Total # of Minutes Spent Total Time Spent with Patient: Total time spent is greater than 50% in coordination of care (as documented) at patient's floor/unit and/or counseling patient: Coding Level of Care Code 24501 IN/OBS CONSULT LVL 4,60M Diagnoses Syncope and collapse R55 Alcohol intoxication F10.929 CHI (closed head injury) S09.90XA
--- NOTE | 2025-01-30 12:30 | Discharge Summary ---
Date of Service January 30, 2025 Admission HPI Per Admitting Provider 64-year-old male with past medical history significant for hyperlipidemia who is unassigned patient visiting [place] comes because of syncope and fall. Patient is visiting from [facility]. Seems visiting his friends. He played golf and was drinking alcohol. The patient suddenly fell down. Patient does not remember the events. As per the ER his friends told that they were standing listening to the music as patient suddenly seemed somewhat off and just fell over from the standing position. No seizure activity noted. Looks like patient passed out for 2 to 3 minutes. When he fell he hit the right side of the head. He had a laceration and bleeding on the right forehead. Laceration was repaired in the ER. Patient is on neck collar. His alcohol as 145. Imaging studies showed hairline fracture of the right orbit. Patient has a bruise over the right eye. Currently denies any headache or neck pain. Denies any blurred vision ,says vision is okay. No runny nose or sore throat. No cough. No earaches. Afebrile. Denies any chest pain or shortness of breath. Denies nausea. Denies abdominal pain. States normal bowel and bladder movements. Hemodynamics are okay currently. Past medical history. As mentioned above. Past surgical history. Left shoulder cuff repair. Left tibia-fibula repair. Social history. Denies smoking. Says drinks beer 2 times a week and not much. Denies drug use. Family history. Father had bladder cancer. Mother had breast cancer. Admission Exam Per Admitting Provider General- not in acute distress Head- laceration on left forehead, bruise surrounding right eye Eyes- PERRL. ENT- oropharynx clear Neck- On Neck collar Lungs- clear to auscultation no wheezing or crackles Heart- regular rhythm; no murmur, no gallop. Abdomen- normal bowel sounds, soft, nontender, no distension Extremities- no pretibial edema, no erythema seen Neuro- alert, oriented x 3; no facial palsy; no dysarthria; moves extremities .power 5/5 in all extremities Principal Diagnosis Fall/ syncope Orbital fracture Alcohol use Discharge Exam General- WD/WN M in NAD Head- laceration on left forehead, bruise and edema surrounding right eye Eyes- PERRL. Neck- supple Lungs- clear to auscultation no wheezing or crackles Heart- regular rhythm; no murmur Abdomen- normal bowel sounds, soft, nontender, no distension Extremities- no pretibial edema, no erythema seen Neuro- alert, oriented x 3; no facial palsy; no dysarthria; moves extremities strength 5/5 in all extremities Discharge Data Allergies Allergy/AdvReac Type Severity Reaction Status Date / Time No Known Allergies Allergy Verified 01/30/25 00:13 Consultations 01/30/25 00:49 ED Decision to Admit Stat 01/30/25 08:39 Consult Cardiology Routine Consult Oromaxillofacial Surgery Routine Ordered Studies 01/29/25 22:47 CT cervical spine wo con Stat FINDINGS: Vertebrae: No acute fracture. No traumatic subluxation. Discs/spinal canal/neural foramina: Disc and uncovertebral joint degeneration at C4-C5, C5-C6, and C6-C7. Mild spinal canal stenosis and foraminal narrowing at these levels. Soft tissues: Unremarkable. IMPRESSION: No acute findings in the cervical spine. CT facial bones wo con Stat FINDINGS: Bones/joints: Acute nondisplaced hairline fracture through the right orbital roof. No other fractures of the orbits or facial bones. Soft tissues: Right periorbital soft tissue swelling. Orbits: Ocular globes intact. No retrobulbar abnormalities. Small volume of hemorrhage and gas in the superior extraconal right orbital cavity. Sinuses: Mild mucosal thickening in the right frontal sinus, right ethmoids, and bilateral maxillary sinuses. IMPRESSION: 1. Right periorbital soft tissue swelling. 2. Acute nondisplaced hairline fracture through the right orbital roof. Associated small amount of hemorrhage and emphysema in the extraconal superior right orbital cavity. CT head/brain wo con Stat FINDINGS: Brain: No acute intracranial hemorrhage, mass effect, or parenchymal edema. No evident loss of dewitt-white matter differentiation. No significant white matter disease. Ventricles: No hydrocephalus. Bones/joints: Acute hairline fracture through the right orbital roof. Subjacent foci of gas and hemorrhage in the superior extraconal right orbital cavity. Soft tissues: Right frontal scalp laceration/hematoma and right supraorbital soft tissue swelling. Vasculature: Intracranial atherosclerosis. Sinuses: Unremarkable as visualized. Mastoid air cells: No significant mastoid effusion. IMPRESSION: 1. Right frontal scalp laceration/hematoma and right supraorbital soft tissue swelling. 2. Acute hairline fracture through the right orbital roof. Subjacent foci of gas and hemorrhage in the superior extraconal right orbital cavity. 3. No acute intracranial findings. Hospital Course (1) Syncope and collapse: 64-year-old male with past medical history significant for hyperlipidemia who is unassigned patient visiting [place] comes because of syncope and fall. Patient is visiting from [facility]. Seems visiting his friends. He played golf and was drinking alcohol. The patient suddenly fell down. Patient does not remember the events. As per the ER his friends told that they were standing listening to the music as patient suddenly seemed somewhat off and just fell over from the standing position. No seizure activity noted. Looks like patient passed out for 2 to 3 minutes. When he fell he hit the right side of the head. He had a laceration and bleeding on the right forehead. Laceration was repaired in the ER. Patient is on neck collar. His alcohol as 145. Imaging studies showed hairline fracture of the right orbit. Patient has a bruise over the right eye. Currently denies any headache or neck pain. Denies any blurred vision ,says vision is okay. No runny nose or sore throat. No cough. No earaches. Afebrile. Denies any chest pain or shortness of breath. Denies nausea. Denies abdominal pain. States normal bowel and bladder movements. Hemodynamics are okay currently. Syncope and collapse Alcohol level [address] head shows right frontal scalp laceration and right supraorbital soft tissue swelling. Acute hairline fracture of the right orbital roof with subsequent foci of gas and hemorrhage in the superior extraconal right orbital cavity. No acute intracranial findings Will follow serial enzymes and repeat EKG in. Monitor on telemetry Echo - Borderline concentric LVH. No regional wall motion abnormality. LV syst. funstion is normal. LV EF 60-65%. The RV is normal in size and function. grade I diastolic dysfunction. There is mild aortic valve regurg. present, otherwise no significant valvular disease. IV fluids given Cardiology consulted - Cardiac workup is reassuring. Although repeat EKG tracing is suggestive of possible left atrial lodgment, chamber size is normal on the echocardiogram. Mild aortic valve regurgitation is present, otherwise no significant findings. High-sensitivity troponin levels performed x 2 were normal. Telemetry reviewed revealing sinus rhythm in the 60s. No additional cardiac workup is felt to be indicated. Patient can follow-up with his PCP in [place]. I think would be reasonable to hold aspirin for 5 days given scalp laceration and right orbital roof fracture. Fall Right orbital hairline fracture Consulted maxillofacial surgery and discussed with - pt not able to be seen today by Dr. Carlin and pt insists on discharge today. Discussed w/ radiology and Dr. Carlin over the phone and tiger text - ok to discharge pt - recommend to not to blow his nose, pt ok to travel back home to [place] including flying. Empiric Unasyn -> will switch to augmentin neck collar already removed this AM before my eval Pt denies any significant headache or neck pain now Discussed in detail with the pt -and pt's friend at the bedside. Pt wishes to be discharged today. Alcoholism Alcohol level 145 Patient states he only drinks couple of times a week and not heavy Says he will not go through withdrawal Placed on thiamine, folic acid and multivitamins on admission IV Ativan as needed Close monitor - no signs of withdrawal Hyperlipidemia Statin Total Time Total Time Spent Total Time Spent (In Minutes): 40 Discharge Plan Discharge Items Patient Disposition: Home - Self-Care Reason For Visit: FALL, SYNCOPE Discharge Diagnosis: Fall / syncope Orbital fracture Alcohol use Condition on Discharge: Good Activity: Per Instructions section Non-emergency contact: Primary Care Provider Call non-emergency contact if: you have any medication questions and your sympt oms worsen Follow-up/Referrals: PCP,NO [Primary Care Provider] - Diet: Regular Addtl Attending Provider Instructions: Follow up with your primary care physician within 1 week. Finish antibiotic treatment as prescribed. It is recommended that you do not blow your nose and don't take aspirin in next 5 days. Pending Studies at Discharge: No Stand-Alone Forms: [facility] Sm[facility] Cess[facility] Medications and DC Order Prescriptions: New amoxicillin-pot clavulanate 875-125 mg tablet 1 tab PO BID 10 Days Qty: 20 0RF Continued atorvastatin 20 mg tablet 20 mg PO DAILY Held aspirin 81 mg Tablet,Delayed Release (Dr/Ec) 81 mg PO DAILY Hold Instructions: Resume on 02/04/25. Discharge Orders: Discharge Order (Routine); Ordered 01/30/25 Ordered By: Keven Smiley Admission Data Admit Date/Time: 01/30/25 04:41 Attending Provider: Keven Smiley Admit Provider: Scot Little Primary Care Provider: PCP,NO Other Providers: Scot Little; Vika Ramirez; Yaw Saha; Savage Murcia; Rodrick Carrillo; Noel Cheng; Gianni Giang; Melissa Espinoza; Juanis Abebe; Lisset Maurice; Tracey Vasquez; Vika Frederick; Romeo Plaza; Bashir Hendrix; Laina Mcmanus; Sol Parker; Carmelina Zapata; Sherry Banegas; Philipp Mclaughlin; Lisette Sandoval; Mila Vasquez; Jonas Ba; Peng Carlin
--- NOTE | 2025-01-30 18:31 | Electrocardiogram Report ---
Test Reason : Blood Pressure : */* mmHG Vent. Rate : 66 BPM Atrial Rate : 66 BPM P-R Int : 138 ms QRS Dur : 80 ms QT Int : 414 ms P-R-T Axes : 61 51 42 degrees QTcB Int : 434 ms Normal sinus rhythm Possible Left atrial enlargement Borderline ECG When compared with ECG of 29-Jan-2025 23:09, Criteria for Inferior infarct are no longer Present T wave inversion no longer evident in Inferior leads Confirmed by Jonas Santacruz ([id number]) on 01/30/2025 6:30:53 PM Referred By: REFERRED SELF Confirmed By: Jonas Santacruz
[2025-01-31] MEDS ORDERED: THIAMINE HCL 100 MG TAB PO SCH (09:00)
--- NOTE | 2025-02-01 19:42 | Oral/Maxillofacial Consult ---
Date of Consultation February 01, 2025 History of Present Illness Attending Physician: Keven Smiley MD History of Present Illness Dr Smiley called me regarding this case. I was only available by [place] as I was out of town. I was able to communicate with our radiologist regarding the fracture to insure the there was no communication with the frontal sinus or inter cranial fossa. I was assured there was not. Based on this I see no reason why Mr Smith can not be discharged as return to [place] by plane. 64-year-old male with past medical history significant for hyperlipidemia who is unassigned patient visiting [place] comes because of syncope and fall. Patient is visiting from [facility]. Seems visiting his friends. He played golf and was drinking alcohol. The patient suddenly fell down. Patient does not remember the events. As per the ER his friends told that they were standing listening to the music as patient suddenly seemed somewhat off and just fell over from the standing position. No seizure activity noted. Looks like patient passed out for 2 to 3 minutes. When he fell he hit the right side of the head. He had a laceration and bleeding on the right forehead. Laceration was repaired in the ER. Patient is on neck collar. His alcohol as 145. Imaging studies showed hairline fracture of the right orbit. Patient has a bruise over the right eye. Currently denies any headache or neck pain. Denies any blurred vision ,says vision is okay. No runny nose or sore throat. No cough. No earaches. Afebrile. Denies any chest pain or shortness of breath. Denies nausea. Denies abdominal pain. States normal bowel and bladder movements. Hemodynamics are okay currently. Allergies Allergy/AdvReac Type Severity Reaction Status Date / Time No Known Allergies Allergy Verified 01/30/25 00:13 Home Medications Medication Instructions Recorded Confirmed Type amoxicillin 875 mg-potassium 1 tab PO BID 10 days #20 tabs 01/30/25 Rx clavulanate 125 mg tablet aspirin 81 mg tablet,delayed 81 mg PO DAILY 01/30/25 01/30/25 History release atorvastatin 20 mg tablet 20 mg PO DAILY 01/30/25 01/30/25 History Patient History Social History Smoking Status: Never smoker Preferred Language: Yoruba Feels Safe at Home: Yes PG Care Time/CCT Total # of Minutes Spent Total Time Spent with Patient: Total time spent is greater than 50% in coordination of care (as documented) at patient's floor/unit and/or counseling patient: Coding Level of Care Code 29699 OP VST NEW LOW 30 MIN
== END 2025-01-30 16:15 | disposition home or self-care (01) ==
LOC: ED 22:40 → EDINP 01-30 04:41 → INTOOBSV 01-30 04:41 → EDINP 01-30 08:43